=== PATIENT | male | born 1955 | race African-American/Black ===

== ENCOUNTER 2020-04-07 17:00 | Emergency (ER) | payer MEDICARE, OTHER ==
[~2020-04-07] VITALS: Ht 180.3 cm; Wt 78.5 kg
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
--- NOTE | 2020-04-07 18:04 | RAD ---
Exam: Chest one view INDICATION: Shortness of breath TECHNIQUE: Frontal view of the chest Comparisons: None FINDINGS: Sternotomy wires are noted. The cardiomediastinal silhouette and pulmonary vessels are within normal limits. The lung and pleural spaces are clear. IMPRESSION: No acute pulmonary process. Electronically signed by: Sheridan Cavazos MD (04/07/2020 6:01 PM) [facility]
[2020-04-07 18:05] LABS: BASO % 0 % (0-3); EOS % 0 % (0-3); HEMATOCRIT 43.7 % (39.0-53.0); HEMOGLOBIN 14.4 g/dL (13.0-17.5); LYMPH # 1.1 x10^3/uL (1.0-4.8); LYMPH % 24 % (24-48); MEAN CORPUSCULAR HEMOGLOBIN 32 pg (25-35); MEAN CORPUSCULAR HGB CONC 33 g/dL (31-37); MEAN CORPUSCULAR VOLUME 96 fL (79-100); MONO # 0.4 x10^3/uL (0.0-1.1); MONO % 9 % (0-9); NEUT # 3.2 x10^3uL (1.8-7.7); NEUT % 67 % (31-73); PLATELET COUNT 257 x10^3/uL (140-400); RED BLOOD COUNT 4.57 x10^6/uL (4.30-5.70); WHITE BLOOD COUNT 4.8 x10^3/uL (4.0-11.0)
[2020-04-07 18:19] LABS: ALBUMIN 3.6 g/dL (3.4-5.0); ALBUMIN/GLOBULIN RATIO 0.8 (1.0-1.7); CALCIUM 9.3 mg/dL (8.5-10.1); CREATININE 2.1 mg/dL (0.7-1.3); GFR 38.7; MAGNESIUM 2.1 mg/dL (1.8-2.4); POTASSIUM 4.6 mmol/L (3.5-5.1); TOTAL BILIRUBIN 0.5 mg/dL (0.2-1.0); TOTAL PROTEIN 8.1 g/dL (6.4-8.2)
[2020-04-07] MEDS ORDERED: ASPIRIN CHEWABLE 81 MG TABLET. PO ONE (18:30)
--- NOTE | 2020-04-07 18:46 | EKG ---
[address] [address] Test Date: 2020-04-07 Test Time: 17:38:06 Pat Name: ELISABETH GALEAS Department: Room: Gender: M Weed Controller: : 1955 Requested By: BOBY SOTO Order Number: [id number] Reading MD: Jaya Burrell MD Measurements Intervals [place] Rate: 69 P: 7 CA: 144 QRS: 23 QRSD: 100 T: 170 QT: 376 QTc: 409 Interpretive Statements SINUS RHYTHM LVH WITH REPOLARIZATION ABNORMALITY ABNORMAL ECG Electronically Signed On 04-08-2020 12:31:59 BRIDGE MAINTAINER by Jaya Burrell MD
[2020-04-07 20:50] VITALS: BP 190/102
== END 2020-04-07 22:10 | disposition short-term general hospital (02) ==
LOC: ER 17:00
DX: U07.1 COVID-19 (principal); R77.8 Other specified abnormalities of plasma proteins; R79.1 Abnormal coagulation profile; R79.89 Other specified abnormal findings of blood chemistry; F41.9 Anxiety disorder, unspecified; E78.00 Pure hypercholesterolemia, unspecified; I10 Essential (primary) hypertension
CPT/HCPCS: 36415; 71045; 80053; 83735; 84484; 85025; 85379; 93005; 99285